=== PATIENT | male | born 1940 | race Caucasian/White ===

== ENCOUNTER 2020-09-10 17:36 | Inpatient (IN) ==
[2020-09-10] MEDS ORDERED: Naloxone 0.4 MG/ML INJ IVP PRN (21:48)
[2020-09-10] MEDS ORDERED: *HR* LORazepam 2 MG/ML VIAL IVP PRN (22:28)
[2020-09-10 22:36] LABS: Bilirubin,Urine Negative (Negative); Blood,Urine Negative (Negative); Clarity,Urine Clear (Clear); Color,Urine Light-Yellow (Yellow); Glucose,Urine (UA) Normal (Normal); Ketones,Urine 40 mg/dL (Negative); Leukocyte Esterase,Urine Negative (Negative); Nitrite,Urine Negative (Negative); Protein,Urine Trace mg/dL (Neg-Trace); Specific Gravity,Urine > 1.030 (1.010-1.025); Urobilinogen,Urine Normal (Normal)
[2020-09-10 23:01] LABS: Amphetamine Screen,Urine Negative ng/mL (Cutoff=1000); Barbiturate Screen,Urine Negative ng/mL (Cutoff=200); Benzodiazepines Screen,Urine Positive ng/mL (Cutoff=200); Cannabinoid Screen,Urine Negative ng/mL (Cutoff = 50); Cocaine Screen,Urine Negative ng/mL (Cutoff= 300); Opiate Screen,Urine Negative ng/mL (Cutoff=300); Phencyclidine Screen,Urine Negative ng/mL (Cutoff=25)
[2020-09-10] MEDS ORDERED: Perflutren Lipid Microsphere 1.3 ML in 0.9 % Sodium Chloride 8.7 ML IVP PRN (23:29)
[2020-09-10] MEDS ORDERED: 0.9 % Sodium Chloride 1,000 ML IVC SCH (23:30)
[2020-09-10 23:32] LABS: Alanine Aminotransferase 29 Units/L (7-52); Albumin 3.7 g/dL (3.5-5.7); Albumin/Globulin Ratio 1.5 (1.1-2.2); Alkaline Phosphatase 56 Units/L (34-104); Aspartate Amino Transferase 47 Units/L (13-39); BUN/Creatinine Ratio 18 (6-26); Bilirubin,Total 0.6 mg/dL (0.3-1.0); Blood Urea Nitrogen 16 mg/dL (8-23); Calcium 8.4 mg/dL (8.6-10.3); Carbon Dioxide 24 mEq/L (23-29); Chloride 107 mEq/L (98-107); Globulin 2.5 g/dL (2.4-3.5); Glucose 119 mg/dL (70-105); Magnesium 1.9 mg/dL (1.6-2.6); Osmolality,Calculated 300 (280-300); Phosphorous 2.8 mg/dL (2.7-4.5); Potassium 3.9 mEq/L (3.5-5.1); Sodium 144 mEq/L (136-145); Total Protein 6.2 g/dL (6.4-8.9); eGFR For African Americans > 60 (> 60); eGFR For Non-African Americans > 60 (> 60)
[2020-09-10] MEDS ORDERED: Aspirin 325 MG TABLET PO ONE (23:32)
[2020-09-10 23:48] LABS: Thyroid Stimulating Hormone 3.179 mcIU/mL (0.340-5.600)
[2020-09-11] MEDS: levETIRAcetam 1,000 MG in 0.9 % Sodium Chloride 100 ML IVPB SCH ×3 (00:01→22:02)
[2020-09-11 04:57] LABS: Estimated Average Glucose 114 mg/dl; Hemoglobin A1C 5.6 %; INR 1.3; Prothrombin Time 14.5 Seconds (9.4-12.1)
[2020-09-11 05:04] LABS: BUN/Creatinine Ratio 18 (6-26); Blood Urea Nitrogen 16 mg/dL (8-23); Carbon Dioxide 24 mEq/L (23-29); Chloride 109 mEq/L (98-107); Chol/HDL Ratio 3.2 (0-4.9); Cholesterol 109 mg/dL (< 200); Glucose 100 mg/dL (70-105); HDL Cholesterol 34 mg/dL (40-59); LDL Cholesterol,Calculated 64 mg/dL (< 100); Osmolality,Calculated 293 (280-300); Potassium 3.7 mEq/L (3.5-5.1); Sodium 141 mEq/L (136-145); Triglycerides 54 mg/dL (< 150); eGFR For African Americans > 60 (> 60); eGFR For Non-African Americans > 60 (> 60)
[2020-09-11] MEDS ORDERED: 0.9 % Sodium Chloride 1,000 ML IVC ONE (05:09)
[2020-09-11] MEDS: Vancomycin 1,250 MG/262.5 ML IV.SOLN IVPB SCH ×2 (05:52→17:56)
[2020-09-11] MEDS: *HR* Heparin 5,000 UNIT/ML VIAL SQ SCH ×2 (06:00→17:56)
[2020-09-11] MEDS ORDERED: Piperacillin/Tazobactam 3.375 GM in 0.9 % Sodium Chloride Mini Bag 100 ML IVPB SCH (06:00)
[2020-09-11] MEDS ORDERED: Gadolinium Contrast Agent (WT Based) IV PRN (07:46)
[2020-09-11 09:29] LABS: Basophils % 0.1 %; Eosinophils # 0.3 K/mcL (0.0-0.6); Eosinophils % 1.7 %; Hematocrit 38.9 % (37.5-50.1); Immature Granulocytes % 0.4 % (0-4); Lymphocytes # 1.7 K/mcL (0.6-4.6); Lymphocytes % 10.4 %; Mean Corpuscular HGB Conc 33.4 g/dL (31.6-35.5); Mean Corpuscular Hemoglobin 31.5 pg (28.0-33.3); Mean Corpuscular Volume 94.2 fL (83.0-100.0); Mean Platelet Volume 10.7 fL (9.4-12.4); Monocytes # 1.2 K/mcL (0.0-1.3); Monocytes % 7.2 %; Neutrophils # 12.8 K/mcL (1.6-8.9); Platelet Count 228 K/mcL (140-400); Red Blood Count 4.13 M/mcL (4.19-5.50); Red Cell Distribution Width 13.7 % (11.5-14.5); Segmented Neutrophils % 80.2 %; White Blood Count 15.9 K/mcL (4.3-11.1)
[2020-09-11] MEDS ORDERED: cefTRIAXone 1,000 MG in Water for inj. (sterile) 10 ML IVP SCH (11:00)
[2020-09-11] MEDS ORDERED: Ipratropium/Albuterol Neb 3 ML IH PRN (11:35)
[2020-09-11] MEDS: Acyclovir 700 MG in D5% in Water 250 ML IVPB SCH ×2 (13:02→18:01)
[2020-09-11] MEDS: Budesonide/Formoterol 160/4.5 1 PUFF INH IH SCH (20:14)
[2020-09-11] MEDS: Mirtazapine 15 MG TABLET PO SCH (22:02)
[2020-09-12] MEDS: Acyclovir 700 MG in D5% in Water 250 ML IVPB SCH ×3 (03:12→21:32)
[2020-09-12 04:48] LABS: VBG HCO3 26 mEq/L (21-27); VBG PCO2 34 mmHg (41-51); VBG PH 7.49 pH Units (7.32-7.42); VBG PO2 131 mmHg (25-50)
[2020-09-12 04:48] LABS: Basophils % 0.4 %; Hematocrit 39.2 % (37.5-50.1); Immature Granulocytes % 0.3 % (0-4)
[2020-09-12 04:50] LABS: Eosinophils # 0.5 K/mcL (0.0-0.6); Eosinophils % 4.9 %; Immature Platelets 5.4 % (1.1-6.1); Lymphocytes # 1.7 K/mcL (0.6-4.6); Lymphocytes % 17.5 %; Mean Corpuscular HGB Conc 33.2 g/dL (31.6-35.5); Mean Corpuscular Hemoglobin 30.8 pg (28.0-33.3); Mean Corpuscular Volume 92.9 fL (83.0-100.0); Mean Platelet Volume 10.4 fL (9.4-12.4); Monocytes # 0.7 K/mcL (0.0-1.3); Monocytes % 7.3 %; Neutrophils # 6.7 K/mcL (1.6-8.9); Platelet Count 224 K/mcL (140-400); Red Blood Count 4.22 M/mcL (4.19-5.50); Red Cell Distribution Width 13.5 % (11.5-14.5); Segmented Neutrophils % 69.6 %; White Blood Count 9.6 K/mcL (4.3-11.1)
[2020-09-12 05:04] LABS: Alanine Aminotransferase 30 Units/L (7-52); Albumin 3.5 g/dL (3.5-5.7); Albumin/Globulin Ratio 1.4 (1.1-2.2); Alkaline Phosphatase 58 Units/L (34-104); Aspartate Amino Transferase 48 Units/L (13-39); BUN/Creatinine Ratio 13 (6-26); Bilirubin,Total 0.6 mg/dL (0.3-1.0); Blood Urea Nitrogen 10 mg/dL (8-23); Calcium 8.4 mg/dL (8.6-10.3); Carbon Dioxide 24 mEq/L (23-29); Chloride 109 mEq/L (98-107); Globulin 2.5 g/dL (2.4-3.5); Glucose 120 mg/dL (70-105); Osmolality,Calculated 296 (280-300); Platelet Estimate Normal (Normal); Potassium 3.2 mEq/L (3.5-5.1); Sodium 143 mEq/L (136-145); eGFR For African Americans > 60 (> 60); eGFR For Non-African Americans > 60 (> 60)
[2020-09-12] MEDS: Vancomycin 1,250 MG/262.5 ML IV.SOLN IVPB SCH (06:46)
[2020-09-12] MEDS: *HR* Heparin 5,000 UNIT/ML VIAL SQ SCH ×2 (06:48→16:59)
[2020-09-12] MEDS: levETIRAcetam 1,000 MG in 0.9 % Sodium Chloride 100 ML IVPB SCH ×2 (08:38→21:33)
[2020-09-12] MEDS: amLODIPine 5 MG TABLET PO SCH (08:38)
[2020-09-12] MEDS: Tiotropium 10 INH DOSE IH SCH (10:01)
[2020-09-12] MEDS: Budesonide/Formoterol 160/4.5 1 PUFF INH IH SCH ×2 (10:01→21:41)
[2020-09-12] MEDS: Mirtazapine 15 MG TABLET PO SCH (21:34)
[2020-09-12] MEDS: Acetaminophen 325 MG TABLET PO PRN (23:55)
[2020-09-13 01:42] LABS: Basophils % 0.1 %; Eosinophils # 0.3 K/mcL (0.0-0.6); Eosinophils % 2.4 %; Hematocrit 38.4 % (37.5-50.1); Hemoglobin 13.2 g/dL (12.9-16.9); Immature Granulocytes % 0.2 % (0-4); Lymphocytes # 0.8 K/mcL (0.6-4.6); Lymphocytes % 6.7 %; Mean Corpuscular HGB Conc 34.4 g/dL (31.6-35.5); Mean Corpuscular Hemoglobin 31.1 pg (28.0-33.3); Mean Corpuscular Volume 90.6 fL (83.0-100.0); Monocytes # 1.1 K/mcL (0.0-1.3); Monocytes % 9.7 %; Platelet Count 233 K/mcL (140-400); Red Blood Count 4.24 M/mcL (4.19-5.50); Red Cell Distribution Width 13.2 % (11.5-14.5); Segmented Neutrophils % 80.9 %; White Blood Count 11.1 K/mcL (4.3-11.1)
[2020-09-13 01:59] LABS: Albumin 3.5 g/dL (3.5-5.7); Albumin/Globulin Ratio 1.4 (1.1-2.2); Bilirubin,Total 0.6 mg/dL (0.3-1.0); Calcium 8.9 mg/dL (8.6-10.3); Globulin 2.5 g/dL (2.4-3.5); Potassium 3.8 mEq/L (3.5-5.1)
[2020-09-13] MEDS: Acyclovir 700 MG in D5% in Water 250 ML IVPB SCH (04:03)
[2020-09-13] MEDS: *HR* Heparin 5,000 UNIT/ML VIAL SQ SCH ×2 (06:18→17:59)
[2020-09-13] MEDS: levETIRAcetam 1,000 MG in 0.9 % Sodium Chloride 100 ML IVPB SCH (07:57)
[2020-09-13] MEDS: 0.9 % Sodium Chloride 1,000 ML IVC SCH ×2 (07:57→17:54)
[2020-09-13] MEDS: amLODIPine 5 MG TABLET PO SCH (07:58)
[2020-09-13] MEDS: Tiotropium 10 INH DOSE IH SCH (09:53)
[2020-09-13] MEDS: Budesonide/Formoterol 160/4.5 1 PUFF INH IH SCH ×2 (09:54→20:24)
[2020-09-13 15:42] LABS: Bilirubin,Urine Negative (Negative); Blood,Urine Negative (Negative); Clarity,Urine Clear (Clear); Color,Urine Colorless (Yellow); Glucose,Urine (UA) Normal (Normal); Ketones,Urine Negative (Negative); Leukocyte Esterase,Urine Negative (Negative); Nitrite,Urine Negative (Negative); PH,Urine 6.5 pH Units (5.0-8.0); Protein,Urine Trace mg/dL (Neg-Trace); Specific Gravity,Urine 1.007 (1.010-1.025); Urobilinogen,Urine Normal (Normal)
[2020-09-13] MEDS: Acetaminophen 325 MG TABLET PO PRN ×2 (16:14→23:14)
[2020-09-13] MEDS: levETIRAcetam 250 MG TABLET PO SCH (17:54)
[2020-09-13] MEDS: Mirtazapine 15 MG TABLET PO SCH (21:46)
[2020-09-13] MEDS: Melatonin 3 MG TABLET PO PRN (23:56)
[2020-09-14 02:34] LABS: Basophils % 0.1 %; Eosinophils # 0.5 K/mcL (0.0-0.6); Eosinophils % 4.3 %; Hematocrit 35.3 % (37.5-50.1); Hemoglobin 11.8 g/dL (12.9-16.9); Immature Granulocytes % 0.5 % (0-4); Lymphocytes # 1.2 K/mcL (0.6-4.6); Lymphocytes % 10.7 %; Mean Corpuscular HGB Conc 33.4 g/dL (31.6-35.5); Mean Corpuscular Hemoglobin 31.1 pg (28.0-33.3); Mean Corpuscular Volume 92.9 fL (83.0-100.0); Mean Platelet Volume 10.2 fL (9.4-12.4); Monocytes # 1.2 K/mcL (0.0-1.3); Monocytes % 10.7 %; Neutrophils # 8.3 K/mcL (1.6-8.9); Platelet Count 217 K/mcL (140-400); Red Cell Distribution Width 13.5 % (11.5-14.5); Segmented Neutrophils % 73.7 %; White Blood Count 11.2 K/mcL (4.3-11.1)
[2020-09-14 03:00] LABS: Albumin 3.3 g/dL (3.5-5.7); Albumin/Globulin Ratio 1.4 (1.1-2.2); Bilirubin,Total 0.7 mg/dL (0.3-1.0); Calcium 8.6 mg/dL (8.6-10.3); Globulin 2.4 g/dL (2.4-3.5); Potassium 3.8 mEq/L (3.5-5.1); Total Protein 5.7 g/dL (6.4-8.9)
[2020-09-14] MEDS: levETIRAcetam 250 MG TABLET PO SCH (05:16)
[2020-09-14] MEDS: *HR* Heparin 5,000 UNIT/ML VIAL SQ SCH ×2 (05:16→17:50)
[2020-09-14] MEDS: 0.9 % Sodium Chloride 1,000 ML IVC SCH ×2 (07:42→17:49)
[2020-09-14] MEDS: amLODIPine 5 MG TABLET PO SCH (08:00)
[2020-09-14] MEDS: Budesonide/Formoterol 160/4.5 1 PUFF INH IH SCH ×2 (08:05→20:20)
[2020-09-14] MEDS: Tiotropium 10 INH DOSE IH SCH (08:06)
[2020-09-14 13:36] LABS: Hepatitis B Surface Antigen Nonreactive (Nonreactive)
[2020-09-14 14:05] LABS: Hepatitis C Virus Antibody Nonreactive (Nonreactive)
[2020-09-14 14:07] LABS: Hepatitis B Core IgM Nonreactive (Nonreactive)
[2020-09-14 18:39] LABS: Hepatitis A Antibody IgM Nonreactive (Nonreactive)
[2020-09-14] MEDS: Melatonin 3 MG TABLET PO PRN (20:52)
[2020-09-14] MEDS: Mirtazapine 15 MG TABLET PO SCH (20:52)
[2020-09-14] MEDS: Acetaminophen 325 MG TABLET PO PRN (20:52)
[2020-09-15 03:44] LABS: Calcium 8.5 mg/dL (8.6-10.3)
[2020-09-15] MEDS: *HR* Heparin 5,000 UNIT/ML VIAL SQ SCH ×2 (05:12→18:36)
[2020-09-15] MEDS: Tiotropium 10 INH DOSE IH SCH (07:12)
[2020-09-15] MEDS: Budesonide/Formoterol 160/4.5 1 PUFF INH IH SCH ×2 (07:13→20:36)
[2020-09-15] MEDS: amLODIPine 5 MG TABLET PO SCH (08:43)
[2020-09-15] MEDS: 0.9 % Sodium Chloride 1,000 ML IVC SCH ×2 (08:44→18:36)
[2020-09-15 14:33] LABS: Sodium, Urine 99.4 mEq/L
[2020-09-15] MEDS: Mirtazapine 15 MG TABLET PO SCH (20:57)
[2020-09-16] MEDS: *HR* Heparin 5,000 UNIT/ML VIAL SQ SCH ×2 (06:41→16:50)
[2020-09-16 07:20] LABS: Calcium 8.3 mg/dL (8.6-10.3); Potassium 3.6 mEq/L (3.5-5.1)
[2020-09-16] MEDS: Budesonide/Formoterol 160/4.5 1 PUFF INH IH SCH ×2 (07:35→20:13)
[2020-09-16] MEDS: Tiotropium 10 INH DOSE IH SCH (07:35)
[2020-09-16] MEDS: amLODIPine 5 MG TABLET PO SCH (08:14)
[2020-09-16] MEDS: Ringers Solution, Lactated 1,000 ML IVC SCH ×2 (08:14→20:17)
[2020-09-16] MEDS: Melatonin 3 MG TABLET PO PRN (20:19)
[2020-09-16] MEDS: Mirtazapine 15 MG TABLET PO SCH (20:19)
[2020-09-17] MEDS: *HR* Heparin 5,000 UNIT/ML VIAL SQ SCH (05:33)
[2020-09-17 07:13] LABS: Calcium 8.8 mg/dL (8.6-10.3); Potassium 3.7 mEq/L (3.5-5.1)
[2020-09-17] MEDS: Budesonide/Formoterol 160/4.5 1 PUFF INH IH SCH (07:40)
[2020-09-17] MEDS: Tiotropium 10 INH DOSE IH SCH (07:40)
[2020-09-17] MEDS: amLODIPine 5 MG TABLET PO SCH (08:22)
[2020-09-17 11:14] VITALS: BP 141/67
== END 2020-09-17 12:20 | disposition home health service (06) | DRG 100 ==
LOC: 2NENU → SUATTDRO 21:12
PROVIDERS: ADMIT Internal Medicine; ATTEND Internal Medicine